=== PATIENT | female | born 1940 | race Caucasian/White ===

== ENCOUNTER 2016-11-09 20:23 | Inpatient (IN) | payer OTHER ==
[~2016-11-09] VITALS: Ht 160 cm; Wt 49.9 kg
[2016-11-09] MEDS: PIPERACILLIN SODIUM/TAZOBACTAM 4.5 G in IV DEXTROSE 5% 50 ML IV SCH (02:47)
--- NOTE | 2016-11-09 20:30 | NUR ---
PATIENT BROUGHT IN BY [facility] C/O ABDOMINAL PAIN FOR SEVERAL DAYS WITH DIFFICULTY URINATING
[2016-11-09 21:05] LABS: *BILIRUBIN,URIN NEGATIVE (NEGATIVE); *BLOOD, URINE NEGATIVE (NEGATIVE); *CLARITY,URINE CLEAR (CLEAR); *COLOR,URINE YELLOW (YELLOW); *KETONES,URINE NEGATIVE (NEGATIVE); *PROTEIN,URINE NEGATIVE (NEGATIVE); *UROBILINOGEN,URINE 0.2 E.U./dl (NORMAL); LEUKOCYTE ESTERASE ,URINE NEGATIVE (NEGATIVE); NITRITE, URINE NEGATIVE (NEGATIVE); UGLUCOSE NEGATIVE (NEGATIVE)
[2016-11-09 21:09] LABS: SQUAMOUS EPITHELIAL CELL,UR FEW /HPF (NONE SEEN); WBC,URINE 0-3 /HPF (0-3)
[2016-11-09] MEDS ORDERED: IV NORMAL SALINE 1000 ML BAG IV ONE (21:15)
[2016-11-09 21:24] LABS: BASOPHILS % (AUTO) 0.5 % (0.0-2.0); EOSINOPHILS # (AUTO) 0.4 K/uL (0.0-0.7); HEMOGLOBIN 11.8 G/DL (12.0-16.0); LYMPHOCYTES # (AUTO) 2.6 K/UL (0.8-4.8); LYMPHOCYTES % (AUTO) 25.9 % (20.5-51.5); MEAN CORPUSCULAR HGB CONC 34 g/dL (32.0-37.0); MEAN CORPUSCULAR VOLUME 83.1 FL (81.0-99.0); MONOCYTES # (AUTO) 0.7 K/UL (0.1-1.30); NEUTROPHILS # (AUTO) 6.2 K/UL (1.8-8.9); NEUTROPHILS % (AUTO) 62.6 % (38.5-71.5); PLATELET COUNT (AUTO) 367 K/UL (150-450); RED BLOOD CELL COUNT(AUTO) 4.22 MIL/UL (4.2-5.4); WHITE BLOOD COUNT (AUTO) 9.9 K/UL (4.0-11.2)
[2016-11-09 21:27] LABS: CARBON DIOXIDE 26 mmol/L (21-32); CHLORIDE 99 mmol/L (98-107); CREATININE 0.8 mg/dL (0.6-1.3); GLUCOSE 113 mg/dL (74-106); POTASSIUM 3.3 mmol/L (3.5-5.1); UREA NITROGEN, BLOOD 16 mg/dL (7-18)
[2016-11-09 21:39] LABS: ALANINE AMINOTRANSFERASE 16 U/L (14-59); ALKALINE PHOSPHATASE 99 U/L (50-136); ASPARTATE AMINOTRANSFERASE 16 U/L (15-37); BILIRUBIN,DIRECT 0.1 mg/dL (0.0-0.2); BILIRUBIN,TOTAL 0.2 mg/dL (0.2-1.0); LIPASE 363 U/L (73-393); TOTAL PROTEIN, SERUM 7.8 g/dL (6.4-8.2)
--- NOTE | 2016-11-09 22:20 | NUR ---
DR COLBERT PAGED DR RAFY ZAVALA FOR SURGERY CONSULT WAITING FOR CALL BACK
--- NOTE | 2016-11-09 22:40 | NUR ---
DR ZAVALARAFY HAS NOT RESPONDED BACK ON 1ST PAGE. RE PAGE AGIN. WAITING FOR CALL BACK
[2016-11-09] MEDS ORDERED: METRONIDAZOLE 500 MG/NS 100 ML PIGGYBACK IV ONE (22:45)
[2016-11-09] MEDS ORDERED: CEFTRIAXONE 1 G in IV DEXTROSE 5% 50 ML IV ONE (22:45)
[2016-11-09] MEDS ORDERED: METRONIDAZOLE 500 MG/NS 100ML 100 ML IV ONE (23:00)
[2016-11-09] MEDS ORDERED: CEFTRIAXONE 1 G VIAL ONE (23:00)
--- NOTE | 2016-11-09 23:00 | NUR ---
SPOKE WITH MECHANICAL FITTER AND INFORMED HER THAT SURGEON IS NOT RETURNING CALL FOR CONSULT. WAS SPECIMEN TRANSPORTER DR KEEN [phone] TO CALL FOR CONSULT
[2016-11-09] MEDS ORDERED: SIMV20TA2 PO (23:08)
[2016-11-09] MEDS ORDERED: TEMA15CA5 PO (23:08)
[2016-11-09] MEDS ORDERED: TOPI100T PO (23:08)
[2016-11-09] MEDS ORDERED: SUMA50TA PO (23:08)
[2016-11-09] MEDS ORDERED: Z GUARD REMEDY PASTE 57 GM TUBE TOP PRN (23:15)
[2016-11-09] MEDS ORDERED: ACETAMINOPHEN 325 MG TABLET PO PRN (23:15)
[2016-11-09] MEDS ORDERED: MORPHINE SULFATE 2 MG/1 ML DISP.SYRIN IV PRN (23:15)
[2016-11-09] MEDS ORDERED: ONDANSETRON 4 MG/2 ML VIAL IV PRN (23:15)
[2016-11-09] MEDS ORDERED: MAGNESIUM HYDROXIDE 30 ML LIQUID UDC PO PRN (23:15)
--- NOTE | 2016-11-09 23:30 | NUR ---
[address]ND PAGE FOR DR KEEN. WAITING FOR CALL BACK
--- NOTE | 2016-11-10 00:05 | NUR ---
DR KEEN HAS NOT RETURN CALL. PAGE DR PIERRE. WAITING FOR CALL BACK
--- NOTE | 2016-11-10 00:50 | NUR ---
DR COLBERT SPOKE WITH DR RAFY ZAVALA WHO WILL SEE PATIENT IN AM
--- NOTE | 2016-11-10 01:44 | NUR ---
TRANSFERED TO 2ND FLOOR MED SURG VIA WHEELCHAIR
[2016-11-10 01:59] VITALS: BP 125/79
--- NOTE | 2016-11-10 02:00 | NUR ---
PATIENT RECEIVED IN WHEELCHAIR ACCOMPANIED BY ER STAFF. DIAGNOSIS APPENDICITIS. PER REPORT PT HAS BEEN C/O OF ABDOMINAL PAIN AND DIFFICULTY URINATING FOR THE LAST FEW DAYS. UPON FACE TO FACE PT IS AOX4, PLEASANT UPON APPROACH. REPORTS HISTORY OF MIGRAINES AND WEAKNESS ALTHOUGH PT AMBULATES STEADY. PT LUNG SOUNDS CLEAR WITH AUSCULTATION. HEP LOCK TO RIGHT FOREARM #20 INTACT AND FLUSHED WITH SALINE. PATIENT SKIN OBSERVED TO BE INTACT. NO ACUTE DISTRESS NOTED. MD NOTIFIED. SAFETY MEASURES PROVIDED.
[2016-11-10] MEDS: IV D5 1/2 NS 1000 ML 1,000 ML IV PRN ×2 (02:06→17:02)
[2016-11-10] MEDS ORDERED: PIPERACILLIN/TAZO 4.5 GM VIAL IV ONE (02:42)
[2016-11-10 05:04] VITALS: BP 106/61
[2016-11-10] MEDS: PIPERACILLIN SODIUM/TAZOBACTAM 4.5 G in IV DEXTROSE 5% 50 ML IV SCH ×3 (06:00→21:00)
--- NOTE | 2016-11-10 06:21 | NUR ---
pt zosyn not administered due to zosyn dose given at 0245. Will notify pharmacy and on coming staff. pt sleeping at this time. No aucte distress noted.
--- NOTE | 2016-11-10 07:20 | NUR ---
RECEIVED REPORT FROM [employer] NURSE, PATIENT IN BED AWAKE, NO EVIDENCE OF DISTRESS NOTED, BED IN LOW POSITION, SIDE RAILS UPX2.
[2016-11-10 07:28] LABS: ALANINE AMINOTRANSFERASE 14 U/L (14-59); ALKALINE PHOSPHATASE 91 U/L (50-136); ASPARTATE AMINOTRANSFERASE 17 U/L (15-37); BILIRUBIN,TOTAL 0.3 mg/dL (0.2-1.0); CARBON DIOXIDE 25 mmol/L (21-32); CHLORIDE 105 mmol/L (98-107); CHOLESTEROL 140 mg/dL (<200); CREATININE 0.9 mg/dL (0.6-1.3); GLUCOSE 120 mg/dL (74-106); HDL CHOLESTEROL 68 mg/dL (40-60); MAGNESIUM 1.8 mg/dL (1.8-2.4); POTASSIUM 3.6 mmol/L (3.5-5.1); TOTAL PROTEIN, SERUM 7.1 g/dL (6.4-8.2); TRIGLYCERIDES 47 MG/DL (30-150); UREA NITROGEN, BLOOD 13 mg/dL (7-18)
[2016-11-10 07:31] LABS: BASOPHILS # (AUTO) 0.1 K/uL (0.0-8.0); BASOPHILS % (AUTO) 0.4 % (0.0-2.0); EOSINOPHILS # (AUTO) 0.4 K/uL (0.0-0.7); HEMATOCRIT 35.2 % (37-47); HEMOGLOBIN 11.6 G/DL (12.0-16.0); LYMPHOCYTES # (AUTO) 2.5 K/UL (0.8-4.8); LYMPHOCYTES % (AUTO) 19.4 % (20.5-51.5); MEAN CORPUSCULAR HEMOGLOBIN 27.6 UUG (27.0-31.0); MEAN CORPUSCULAR HGB CONC 33 g/dL (32.0-37.0); MEAN CORPUSCULAR VOLUME 84.2 FL (81.0-99.0); MONOCYTES # (AUTO) 0.8 K/UL (0.1-1.30); NEUTROPHILS # (AUTO) 8.9 K/UL (1.8-8.9); NEUTROPHILS % (AUTO) 71.2 % (38.5-71.5); PLATELET COUNT (AUTO) 364 K/UL (150-450); RED BLOOD CELL COUNT(AUTO) 4.18 MIL/UL (4.2-5.4)
[2016-11-10 07:38] LABS: WHITE BLOOD COUNT (AUTO) 12.7 K/UL (4.0-11.2)
[2016-11-10 10:04] LABS: BAND % (MANUAL) 9 % (0-10); EOSINOPHILS % (MANUAL) 2 % (0-8); LYMPHOCYTES % (MANUAL) 23 % (20-40); METAMYELOCYTES % 1 % (0-1); MONOCYTES % (MANUAL) 3 % (2-10); MYELOCYTES % 1 % (0-0); NEUTROPHILS % (MANUAL) 61 % (42-75)
[2016-11-10 11:13] VITALS: BP 100/56
[2016-11-10 15:18] VITALS: BP 99/47
--- NOTE | 2016-11-10 17:41 | NUR ---
PATIENT HAS BEEN RESTING COMFORTABLY THROUGHOUT THE DAY, NO EVIDENCE OF DISTRESS NOTED, NO PAIN REPORTED, NO NAUSEA, NO SOB. PATIENT IS SCHEDULED TO HAVE SURGERY AT 8AM TOMORROW MORNING, CONSENT IS SIGNED AND IN CHART. NO INFORMATION IS TO BE RELEASED TO THE [facility] PER PATIENT INSTRUCTIONS.
[2016-11-10 20:00] VITALS: BP 94/50
--- NOTE | 2016-11-10 20:15 | NUR ---
Pt received laying in bed, no acute distress noted. Receiving IVF intact and patent. Pt aware and educated about NPO for surgery in AM. Pt lung sounds clear through out. Denies any pain at this time. Safety measures provided.
--- NOTE | 2016-11-10 23:30 | NUR ---
pt c/o migraine and stating "I take topamax 100mg twice a day, I told the doctor". Pt refusing to take morphine order. paged awaiting return call.
--- NOTE | 2016-11-11 01:00 | NUR ---
pt still c/o migraine and stating "I also take imitrex, I take it as a preventative and it's past that now". Pt is angry and upset about not having received medication. comfort measures maintained. Another call made to .
--- NOTE | 2016-11-11 02:03 | NUR ---
Per pt "I had imitrex in my own bag and took it because I couldn't wait any longer". Pt admit to taking own medication of imitrex with sips of water.
--- NOTE | 2016-11-11 02:04 | NUR ---
notified that pt took own imitrex medication. No other orders given at this time.
[2016-11-11] MEDS: PIPERACILLIN SODIUM/TAZOBACTAM 4.5 G in IV DEXTROSE 5% 50 ML IV SCH ×2 (05:09→14:02)
[2016-11-11 05:15] VITALS: BP 100/52
--- NOTE | 2016-11-11 07:00 | NUR ---
Pt is laying in bed comfortably. Pt is noted to be anxious. No s/s of respiratory distress noted. No pain reported/noted. Iv intact/patent. All safety needs are met. Pt asked the or nurse for surgeon to call the daughter. Or nurse noted the information. Will continue to monitor.
[2016-11-11] MEDS ORDERED: DEXAMETHASONE SOD PHOSPHATE 4 MG INJ IV ONE (07:24)
[2016-11-11] MEDS ORDERED: ONDANSETRON 4 MG/2 ML VIAL IV ONE (07:24)
[2016-11-11] MEDS ORDERED: LIDOCAINE-MPF 2% 5 ML VIAL MC ONE (07:24)
[2016-11-11] MEDS ORDERED: GLYCOPYRROLATE 0.2 MG/ML VIAL MC ONE (07:24)
[2016-11-11] MEDS ORDERED: EPHEDRINE SULFATE 50 MG/ML AMPUL MC ONE (07:24)
[2016-11-11] MEDS ORDERED: NEOSTIGMINE METHYLSULFATE 10 MG/10 ML VIAL IV ONE (07:24)
[2016-11-11] MEDS ORDERED: PROPOFOL 200 MG/20 ML BOTTLE IV ONE (07:24)
[2016-11-11] MEDS ORDERED: IV LACTATED RINGERS SOLUTION 1,000 ML BAG IV ONE (07:24)
[2016-11-11] MEDS ORDERED: SEVOFLURANE 250 ML BOTTLE IH ONE (07:24)
[2016-11-11] MEDS ORDERED: VECURONIUM BROMIDE 10 MG VIAL IV ONE (07:24)
[2016-11-11] MEDS: IV D5 1/2 NS 1000 ML 1,000 ML IV PRN (07:32)
--- NOTE | 2016-11-11 08:30 | NUR ---
patient is taken to OR.
[2016-11-11] MEDS ORDERED: BUPIVACAINE/EPI PF 0.25% 30 ML VIAL ONE (08:31)
[2016-11-11] MEDS ORDERED: LIDOCAINE HCL 1% 20 ML VIAL ONE (08:31)
[2016-11-11] MEDS ORDERED: BACITRACIN ZINC OINT 15 GM TUBE ONE (08:41)
[2016-11-11] MEDS ORDERED: OMEP20TA5 PO (09:03)
[2016-11-11] MEDS ORDERED: CYAN10007 IM (09:03)
[2016-11-11] MEDS ORDERED: MULT-1045 PO (09:03)
[2016-11-11] MEDS ORDERED: FAMO1TAB29 PO (09:03)
[2016-11-11] MEDS ORDERED: ASPI-605 PO (09:03)
[2016-11-11] MEDS ORDERED: ONDANSETRON 4 MG/2 ML VIAL ONE (10:47)
[2016-11-11] MEDS ORDERED: FENTANYL CITRATE 100 MCG/2 ML AMPUL ONE (10:59)
[2016-11-11] MEDS ORDERED: KETOROLAC TROMETHAMINE 30 MG INJ ONE (10:59)
[2016-11-11] MEDS ORDERED: METOCLOPRAMIDE HCL 10 MG/2 ML VIAL ONE (11:17)
--- NOTE | 2016-11-11 11:50 | NUR ---
pt came back from or, pt is on 2l nc. will check vs.
[2016-11-11 11:52] VITALS: BP 98/58
[2016-11-11 12:10] VITALS: BP 99/58
[2016-11-11] MEDS ORDERED: HYDROCODONE/APAP 5-325MG TABLET PO PRN (12:30)
[2016-11-11] MEDS ORDERED: SUMATRIPTAN SUCCINATE 50 MG TABLET PO PRN (12:30)
[2016-11-11] MEDS: TOPIRAMATE 100 MG TABLET PO SCH ×2 (12:35→20:38)
[2016-11-11 12:40] VITALS: BP 97/67
[2016-11-11 16:06] VITALS: BP 102/49
--- NOTE | 2016-11-11 17:29 | NUR ---
"CLEAN WITH NORMAL SALINE, DAKINS. APPLY GENTOMYOCIN 0.1%, COVER WITH, MEPILEX" PER ANGÉLICA CORRALES ORDER. PER 'S ORDER "PUT THE ORDERS IN"
[2016-11-11] MEDS: IV LACTATED RINGERS SOLUTION 1,000 ML IV PRN (18:59)
--- NOTE | 2016-11-11 19:37 | NUR ---
NO CHANGES NOTED. ALL SAFETY NEEDS ARE MET.
--- NOTE | 2016-11-11 20:00 | NUR ---
Pt received laying in bed, no acute distress noted. Pt receiving oxygen at 1L via nasal canula. alvarado catheter in place, intact and flowing yellow urine in color. IVF running in right AC at 100ml/hr. Pt educated about he use of incentive spirometer. comfort measures provided.
[2016-11-11 20:44] VITALS: BP 123/56
[2016-11-12 05:15] VITALS: BP 100/67
[2016-11-12] MEDS: IV LACTATED RINGERS SOLUTION 1,000 ML IV PRN (05:25)
[2016-11-12] MEDS: TOPIRAMATE 100 MG TABLET PO SCH (09:09)
--- NOTE | 2016-11-12 09:53 | NUR ---
D/C GIL AND STOP IV PER DR. KEEN
--- NOTE | 2016-11-12 10:00 | NUR ---
Discharge Plan: Once patient is medically cleared patient will be discharged back to [facility] [[address] [place] [id number] room [address]254]. [facility] will arrange for private transportation.
--- NOTE | 2016-11-12 10:00 | NUR ---
Pt wants to have the kind of walker where she can sit on it, per the pt "my insurance will cover it". [facility] brought in a walker but pt doesnt like it "return it back". Removed the Louis, pt was able to urinate promptly
[2016-11-12 11:57] VITALS: BP 93/51
[2016-11-12 15:45] VITALS: BP 110/66
--- NOTE | 2016-11-12 16:30 | NUR ---
DISHARGE NOTE: PT IS READY TO BE D/C. NO S/S OF RESPIRATORY DISTRESS NOTED,PT IS ON RA. ALL SAFETY NEEDS ARE MET. MADE [facility] FOR THE PT FOR DR. KEEN OFFICE, ADVISED THE PT ABOUT TIME, DATE, ADDRESS, PHONE # OF THE [facility]. NO S/S OF PAIN NOTED/REPORTED. IV IS REMOVED. NO S/S OF BLEEDING. WOUND CARE IS DONE, EDUCATION IS PROVIDED. V/S WNL. PT LEFT VIA PRIVATE CAR TO [facility].
== END 2016-11-12 16:30 | DRG 336 ==
LOC: ER 20:29 → MED 11-10 01:14
PROVIDERS: ADMIT Family Medicine; ATTEND Internal Medicine
PROC: 0DNW4ZZ Release Peritoneum, Percutaneous Endoscopic Approach (ICD-10-PCS; 2016-11-11)
PROC: 0DTJ4ZZ Resection of Appendix, Percutaneous Endoscopic Approach (ICD-10-PCS; principal; 2016-11-11 09:01)
DX: K35.80 Unspecified acute appendicitis (principal); N39.0 Urinary tract infection, site not specified; D64.9 Anemia, unspecified; K66.0 Peritoneal adhesions (postprocedural) (postinfection); E78.5 Hyperlipidemia, unspecified; G43.909 Migraine, unspecified, not intractable, without status migrainosus; R32 Unspecified urinary incontinence; F41.9 Anxiety disorder, unspecified; E87.6 Hypokalemia; Z98.890 Other specified postprocedural states
CPT/HCPCS: 36415; 70030-TC; 71010; 83690; 83735; 84100; 85025; 85610; 87086; 93005; 97165; A4663; J0696; J1100; J1885; J2405; J2543; J2710; J2765; J3010; J3490; J7030; J7060; J7120